=== PATIENT | female | born 1950 | race Caucasian/White ===

== ENCOUNTER 2018-11-25 22:21 | Emergency (ER) | payer MEDICARE, MEDICAID ==
[~2018-11-25] VITALS: Ht 170.2 cm; Wt 113.6 kg
[2018-11-25] MEDS ORDERED: FENTANYL75 MCG/HR TD (22:38)
[2018-11-25] MEDS ORDERED: OXYCOD-APAP1 TAB PO (22:39)
[2018-11-25 23:11] LABS: HEMATOCRIT 38.9 % (37.0-47.0); HEMOGLOBIN 12.4 g/dl (12.0-16.0); IMMATURE GRANULOCYTES 0.4 % (0.0-5.0); MEAN CELL VOLUME 81.4 fL CALC (80.0-100.0); MEAN CORPUSCULAR HGB 25.9 pG CALC (26.0-32.0); MEAN CORPUSCULAR HGB CONC 31.9 g/L CALC (32.0-36.0); NEUT# 4.3 thou/uL (2.00-7.15); RED BLOOD COUNT 4.78 mill/uL (4.20-5.60); RED CELL DISTRI WIDTH 16.5 % (11.5-15.5)
[2018-11-25 23:23] LABS: ALBUMIN 4.2 g/dL (3.2-5.0); ALKALINE PHOSPHATASE 68 u/l (38-126); AMYLASE 73 u/l (30-110); ANION GAP 13 (6-22 (CALC)); BILIRUBIN, TOTAL 0.6 mg/dL (0.0-1.4); BUN 15 mg/dL (8-23); BUN/CREATININE RATIO 23 (12-20 (CALC)); CARBON DIOXIDE 25 mmol/l (22-30); CHLORIDE 101 mmol/l (95-108); CREATININE 0.6 mg/dL (0.5-1.0); GFR > 60 ML/MIN (>=60 (CALC)); GFR FOR AFR.AMER. > 60 ML/MIN (>=60 (CALC)); LIPASE 84 u/l (23-300); POTASSIUM 3.6 mmol/l (3.5-5.1); SGOT/AST 24 u/l (9-36); SODIUM 136 mmol/l (137-146); TOTAL PROTEIN 7.3 g/dL (6.3-8.2)
[2018-11-25 23:35] LABS: MYOGLOBIN 104 ng/mL (0 - 62)
[2018-11-25] MEDS ORDERED: ZOFRAN4 MG PO (23:55)
[2018-11-25] MEDS ORDERED: AMOXICILLIN500 MG PO (23:55)
[2018-11-26 00:33] VITALS: BP 133/60
== END 2018-11-26 00:34 | disposition home or self-care (01) ==
LOC: ED 22:21
PROVIDERS: Emergency Medicine
DX: J02.9 Acute pharyngitis, unspecified (principal); R11.2 Nausea with vomiting, unspecified; R51 Headache; R50.9 Fever, unspecified; M79.10 Myalgia, unspecified site

== ENCOUNTER 2018-12-28 12:50 | Emergency (ER) | payer MEDICARE, MEDICAID ==
[~2018-12-28] VITALS: Ht 170.2 cm; Wt 110.0 kg
[~2018-12-28 12:50] MED LIST: AMOXICILLIN500 MG PO; FENTANYL75 MCG/HR TD; OXYCOD-APAP1 TAB PO; ZOFRAN4 MG PO
[2018-12-28] MEDS ORDERED: CELEBREX200 MG PO (14:10)
[2018-12-28] MEDS ORDERED: HUMIRA40 MG/0.8 SC (14:12)
[2018-12-28] MEDS ORDERED: REQUIP0.5 MG PO (14:12)
[2018-12-28] MEDS ORDERED: DEXILANT60 MG PO (14:12)
[2018-12-28] MEDS ORDERED: CYMBALTA20 MG PO (14:13)
[2018-12-28] MEDS ORDERED: DILTIAZEM240 MG PO (14:13)
[2018-12-28] MEDS ORDERED: GABAPENTIN100 MG PO (14:15)
[2018-12-28] MEDS ORDERED: PROAIR HFA108 MCG/AC IN (14:15)
[2018-12-28] MEDS ORDERED: AZELASTINE0.1 % (14:17)
[2018-12-28] MEDS ORDERED: TRELEGY ELLIPTA1 AER IN (14:18)
[2018-12-28 14:34] VITALS: BP 142/79
== END 2018-12-28 14:41 | disposition home or self-care (01) ==
LOC: ED 12:50
DX: S09.90XA Unspecified injury of head, initial encounter (principal); S00.81XA Abrasion of other part of head, initial encounter; S00.31XA Abrasion of nose, initial encounter; S80.212A Abrasion, left knee, initial encounter; S80.211A Abrasion, right knee, initial encounter; W01.0XXA Fall on same level from slipping, tripping and stumbling without subsequent striking against object, initial encounter; Y93.01 Activity, walking, marching and hiking; Y92.009 Unspecified place in unspecified non-institutional (private) residence as the place of occurrence of the external cause

== ENCOUNTER 2023-03-25 14:57 | Emergency (ER) | payer MEDICARE, MEDICAID ==
[~2023-03-25] VITALS: Ht 170.2 cm; Wt 100.0 kg
[~2023-03-25 14:57] MED LIST changes: +AZELASTINE0.1 %; +CELEBREX200 MG PO; +CYMBALTA20 MG PO; +DEXILANT60 MG PO; +DILTIAZEM240 MG PO; +GABAPENTIN100 MG PO; +HUMIRA40 MG/0.8 SC; +PROAIR HFA108 MCG/AC IN; +REQUIP0.5 MG PO; +TRELEGY ELLIPTA1 AER IN
[2023-03-25 15:45] VITALS: BP 160/84
== END 2023-03-25 15:50 | disposition home or self-care (01) ==
LOC: ED 14:57
DX: S60.442A External constriction of right middle finger, initial encounter (principal); I10 Essential (primary) hypertension; J44.9 Chronic obstructive pulmonary disease, unspecified; W49.04XA Ring or other jewelry causing external constriction, initial encounter

== ENCOUNTER 2024-04-01 10:16 | Emergency (ER) | payer MEDICARE ==
[~2024-04-01] VITALS: Ht 170.2 cm; Wt 113.0 kg
[~2024-04-01 10:16] MED LIST changes: +BREZTRI AEROSPH1 AER; +HUMIRA10 MG/0.1 SC; -HUMIRA40 MG/0.8 SC; +MOTRIN400 MG/TAB PO; +OMNICEF300 MG PO; +PREDNISONE50 MG PO; +VITAMIN D1.25 MG; +XANAX0.25 MG PO
[2024-04-01 10:25] VITALS: BP 114/96
[2024-04-01 10:31] VITALS: BP 126/72
[2024-04-01 11:03] VITALS: BP 115/54
[2024-04-01 11:31] VITALS: BP 103/59
[2024-04-01 12:03] VITALS: BP 107/59
== END 2024-04-01 12:05 | disposition home or self-care (01) ==
LOC: ED 10:16
DX: S63.501A Unspecified sprain of right wrist, initial encounter (principal); S60.211A Contusion of right wrist, initial encounter; M19.031 Primary osteoarthritis, right wrist; I10 Essential (primary) hypertension; J44.9 Chronic obstructive pulmonary disease, unspecified; W19.XXXA Unspecified fall, initial encounter; Z96.89 Presence of other specified functional implants